=== PATIENT | female | born 1970 | race Two or more races ===

== ENCOUNTER 2019-03-26 11:36 | Emergency (ER) | payer OTHER ==
[2019-03-26] MEDS ORDERED: KETOROLAC TROMETHAMINE INJ/PF 30 MG/1 ML SDV IM ONE ×2 (12:37→15:30)
--- NOTE | 2019-03-26 12:50 | ER Document Report ---
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 She presents with MRI results as well as CT imaging from when she was denied [place] that shows arthritis and L4-5 disc herniation. Patient was sent here by Dr. Doss's office (true) for further evaluation of ?abnormal labs, swelling, and pain. I am unaware of exactly which labs were abnormal at this time. She does have an appointment with orthopedics scheduled in 1 week. Denies LOVE, fever, neck pain, URI, CP, SOB, Abd pain, dysuria, or rash. True called 1243: WBC 30k. and ?lesions on scans provided. I have treated and performed a rapid initial assessment of this patient. A comprehensive ED assessment and evaluation of the patient, analysis of test results and completion of medical decision making process will be conducted by additional ED providers. PHYSICAL EXAMINATION: GENERAL: Well-appearing, well-nourished and in no acute distress. A&Ox4. Answers questions appropriately. LUNGS: Breath sounds clear to auscultation bilaterally and equal. No wheezes rales or rhonchi. HEART: Regular rate and rhythm without murmurs, rubs, gallops. Back: FROM. No midline tenderness. SLR neg. No foot drop. She can move through ROM w/o any difficulty including the rt hip. + troch bursa tenderness. Extremities: No cyanosis, clubbing, or edema b/l. NEUROLOGICAL: Normal speech, normal gait. PSYCH: Normal mood, normal affect. - Related Data Allergies/Adverse Reactions: No Known Allergies Allergy (Unverified 03/26/19 11:41) Past Medical History Renal/ Medical History: Denies: Hx Peritoneal Dialysis Physical Exam - Vital signs Vitals: Temp Pulse Resp BP Pulse Ox 98.6 F 81 16 146/77 H 95 03/26/19 11:49 03/26/19 11:49 03/26/19 11:49 03/26/19 11:49 03/26/19 11:49 Course - Vital Signs Vital signs: Temp Pulse Resp BP Pulse Ox 98.6 F 81 16 146/77 H 95 03/26/19 11:49 03/26/19 11:49 03/26/19 11:49 03/26/19 11:49 03/26/19 11:49
[2019-03-26 13:04] LABS: HEMATOCRIT 32.3 % (36.0-47.0); HEMOGLOBIN 10.3 g/dL (12.0-15.5); MEAN CORPUSCULAR HEMOGLOBIN 29.7 pg (27.0-33.4); MEAN CORPUSCULAR HGB CONC 31.9 g/dL (32.0-36.0); MEAN CORPUSCULAR VOLUME 93 fl (80-97); RED BLOOD COUNT 3.47 10^6/uL (3.72-5.28); RED CELL DISTRIBUTION WIDTH 16.8 % (11.5-14.0); WHITE BLOOD COUNT 27.2 10^3/uL (4.0-10.5)
[2019-03-26 13:05] LABS: APPEARANCE,URINE SLIGHTLY-CLOUDY; BILIRUBIN,URINE NEGATIVE (NEGATIVE); COLOR,URINE YELLOW; GLUCOSE, URINE NEGATIVE (NEGATIVE); KETONES,URINE NEGATIVE (NEGATIVE); LEUKOCYTE ESTERASE,URINE NEGATIVE (NEGATIVE); NITRITE,URINE NEGATIVE (NEGATIVE); PROTEIN,URINE NEGATIVE (NEGATIVE); UROBILINOGEN,URINE NEGATIVE mg/dL (<2.0)
[2019-03-26 13:24] LABS: ALANINE AMINOTRANSFERASE 59 U/L (9-52); ALBUMIN 4.2 g/dL (3.5-5.0); ALKALINE PHOSPHATASE 106 U/L (38-126); ANION GAP 9 (5-19); ASPARTATE AMINO TRANSFERASE 38 U/L (14-36); BILIRUBIN,DIRECT 0.2 mg/dL (0.0-0.4); BILIRUBIN,TOTAL 0.9 mg/dL (0.2-1.3); BLOOD UREA NITROGEN 13 mg/dL (7-20); CALCIUM 8.9 mg/dL (8.4-10.2); CARBON DIOXIDE 28 mmol/L (22-30); CHLORIDE 105 mmol/L (98-107); GLUCOSE 132 mg/dL (75-110); POTASSIUM 4.1 mmol/L (3.6-5.0); SODIUM 141.7 mmol/L (137-145); TOTAL PROTEIN 7.5 g/dL (6.3-8.2)
[2019-03-26 13:27] LABS: ABSOLUTE LYMPHOCYTES# (MANUAL) 1.4 10^3/uL (0.5-4.7); ABSOLUTE NEUTROPHILS# (MANUAL) 21.2 10^3/uL (1.7-8.2); BAND NEUTROPHILS % (MANUAL) 9 % (3-5); EOSINOPHILS % (MANUAL) 0 % (0-6); LYMPHOCYTES % (MANUAL) 3 % (13-45); MONOCYTES % (MANUAL) 0 % (3-13); NUCLEATED RED BLOOD CELLS 5 /100 WBC (0); SEGMENTED NEUTROPHILS % (MAN) 60 % (42-78); TOTAL CELLS COUNTED 100
[2019-03-26 13:30] LABS: ANISOCYTOSIS 1+; PLATELET CLUMPS PRESENT; PLATELET LARGE PRESENT; POLYCHROMASIA 1+
[2019-03-26 13:41] LABS: ERYTHROCYTE SEDIMENTATION RATE 23 mm/hr (0-30)
[2019-03-26 13:51] LABS: BASOPHILS % (MANUAL) 5 % (0-2); IMMATURE MONONUCLEAR% (MANUAL) 12 % (0); METAMYELOCYTES % (MANUAL) 6 % (0); PLATELET COMMENT INCREASED; PLATELET COUNT 718 10^3/uL (150-450); PROMYELOCYTES % (MANUAL) 3 % (0)
--- NOTE | 2019-03-26 17:19 | ER Document Report ---
ED General - General Chief Complaint: Back Pain Stated Complaint: BACK AND RIGHT LEG PAIN Time Seen by Provider: 03/26/19 12:20 Primary Care Provider: SONA ADAMES MD [ACTIVE STAFF] - Follow up in 3-5 days Notes: Patient is a 49-year-old female that presents to the emergency department for chief complaint of right leg pain, weakness and back pain. Patient is visiting from [place], she had been complaining of back pain prior to leaving [place] to visit here, she had MRIs and CT of the pelvis and hips, that did demonstrate some concerning findings of possible bony lesions, she was told she had a disc issue at L4-L5 as well. She is been having this pain for a few weeks now, and is only gotten progressively worse. She will intermittently have weakness in her right leg, and she will get pain in her right hand as well and tremor in her right hand. She currently rates her pain as a 5 out of 10, describes it as a constant aching sensation in the lower back. He denies noting any fever, nausea, vomiting or abdominal pain or chest pain or shortness of breath. History provided from the patient by translation with the patient's daughter, they were offered logging assistant, but declined at this time. Past Medical History: Denies chronic medical issues Past Surgical History: Denies recent or pertinent surgical history Social History: Denies tobacco, alcohol or drug use. Family History: Reviewed and noncontributory for presenting illness Allergies: Reviewed, see documented allergy list. REVIEW OF SYSTEMS: Other than noted above, the 12 point review of systems was reviewed with the patient and were negative, all pertinent findings are included in the HPI. PHYSICAL EXAMINATION: Vital signs reviewed, nursing noted reviewed. GENERAL: Well-appearing, well-nourished and in no acute distress. HEAD: Atraumatic, normocephalic. EYES: Eyes appear normal, extraocular movements intact, sclera anicteric, co njunctiva are normal. ENT: nares patent, oropharynx clear without exudates. Moist mucous membranes. NECK: Normal range of motion, supple without lymphadenopathy LUNGS: Breath sounds clear to auscultation bilaterally and equal. No wheezes rales or rhonchi. HEART: Regular rate and rhythm without murmurs ABDOMEN: Soft, nontender, normoactive bowel sounds. No rebound, guarding, or rigidity. No masses appreciated. Back: There is no focal midline or paraspinal tenderness to the lumbar thoracic spinal exam. EXTREMITIES: Nontender, good range of motion, no pitting or edema. NEUROLOGICAL: Patient's patellar and Achilles tendon reflexes are +2/4 bilaterally, she did have some weakness in the right lower extremity compared to the left, with +4/5 strength compared to +5/5 strength. The patient's upper extremity exam was completely unremarkable, with excellent strength distally, sensation was intact bilaterally and equal. [place] yes just to the rectal no focal neurological deficits. Moves all extremities spontaneously. PSYCH: Normal mood, normal affect. SKIN: Warm, Dry, normal turgor, no rashes or lesions noted on exposed skin - Related Data Allergies/Adverse Reactions: No Known Allergies Allergy (Unverified 03/26/19 11:41) Past Medical History - Social History Smoking Status: Never Smoker Family History: Reviewed & Not Pertinent Patient has suicidal ideation: No Patient has homicidal ideation: No Renal/ Medical History: Denies: Hx Peritoneal Dialysis Physical Exam - Vital signs Vitals: Temp Pulse Resp BP Pulse Ox 98.6 F 81 16 146/77 H 95 03/26/19 11:49 03/26/19 11:49 03/26/19 11:49 03/26/19 11:49 03/26/19 11:49 Course - Re-evaluation Re-evalutation: Patient seen and examined vital signs reviewed. Laboratory data and/or imaging were ordered as appropriate for the patient's presenting symptoms and complaint, with consideration of any critical or life threatening conditions that may be associated with their obtained history and exam as noted above. Patient was treated with Tylenol, Toradol was ordered in triage Results were reviewed when available and demonstrated significant leukocytosis, with abnormal differential, concerning for blood dyscrasia, specifically CML, renal function was normal, no protein in the urine, which does make multiple myeloma less likely, I am concerned this patient may have spinal cord compression however, patient did have abnormal MRI and CT imaging performed [place], will order MRI of the brain, cervical spine, thoracic spine and lumbar spine, to evaluate for possible spinal cord compression at any level, or any brain lesions. As the patient has had both upper and lower extremity symptoms recently. Imaging demonstrated diffuse low fatty attenuation of the bone marrow concerning for possible bone marrow infiltrative process, which is consistent with the patient's blood work, no evidence of spinal cord compression however. The patient was re-evaluated and was stable, pain was controlled Evaluation was most consistent with leukocytosis, back pain, concern for bone marrow dyscrasia, discussed with oncology, they will follow-up with the patient on Friday in the office, this was discussed with the patient's daughter and she is agreeable, other information with permission was given to Dr. Adames, to help facilitate follow-up. Results were discussed with the patient at this point, after careful consideration I feel that that patient can be discharged from the emergency department, the patient was educated treatments and reasons to return to the emergency department based on their presumed diagnosis as noted above, they were advised to followup with a primary care physician in 2-3 days. Patient was agreeable to plan of care. *Note is created using voice recognition software and may contain spelling, syntax or grammatical errors. Laboratory 03/26/19 03/26/19 03/26/19 12:40 12:40 12:40 WBC 27.2 H RBC 3.47 L Hgb 10.3 L Hct 32.3 L MCV 93 MCH 29.7 MCHC 31.9 L RDW 16.8 H Plt Count 718 H Total Counted 100 Seg Neutrophils % Not Reportable Seg Neuts % (Manual) 60 Band Neutrophils % 9 H Lymphocytes % Not Reportable Lymphocytes % (Manual) 3 L Atypical Lymphs % 2 Monocytes % Not Reportable Monocytes % (Manual) 0 L Eosinophils % Not Reportable Eosinophils % (Manual) 0 Basophils % Not Reportable Basophils % (Manual) 5 H Metamyelocytes % 6 H Promyelocytes % 3 H Immature Leukocytes % 12 H Absolute Neutrophils Not Reportable Abs Neuts (Manual) 21.2 H Absolute Lymphocytes Not Reportable Abs Lymphs (Manual) 1.4 Absolute Monocytes Not Reportable Abs Monocytes (Manual) 0.0 L Absolute Eosinophils Not Reportable Absolute Eos (Manual) 0.0 Absolute Basophils Not Reportable Abs Basophils (Manual) 1.4 H Nucleated RBCs 5 Clumped Platelets PRESENT Large Platelets PRESENT Platelet Comment INCREASED Polychromasia 1+ Basophilic Stippling PRESENT Anisocytosis 1+ ESR 23 Sodium 141.7 Potassium 4.1 Chloride 105 Carbon Dioxide 28 Anion Gap 9 BUN 13 Creatinine 0.67 Est GFR ( Amer) > 60 Est GFR (Non-Af Amer) > 60 Glucose 132 H Calcium 8.9 Total Bilirubin 0.9 Direct Bilirubin 0.2 Neonat Total Bilirubin Not Reportable Neonat Direct Bilirubin Not Reportable Neonat Indirect Bili Not Reportable AST 38 H ALT 59 H Alkaline Phosphatase 106 C-React Prot High Sens > 15.0000 H Total Protein 7.5 Albumin 4.2 Urine Color Urine Appearance Urine pH Ur Specific [place] Urine Protein Urine Glucose (UA) Urine Ketones Urine Blood Urine Nitrite Urine Bilirubin Urine Urobilinogen Ur Leukocyte Esterase Urine WBC (Auto) Urine RBC (Auto) Squamous Epi Cells Auto Urine Mucus (Auto) Urine Ascorbic Acid 03/26/19 12:46 WBC RBC Hgb Hct MCV MCH MCHC RDW Plt Count Total Counted Seg Neutrophils % Seg Neuts % (Manual) Band Neutrophils % Lymphocytes % Lymphocytes % (Manual) Atypical Lymphs % Monocytes % Monocytes % (Manual) Eosinophils % Eosinophils % (Manual) Basophils % Basophils % (Manual) Metamyelocytes % Promyelocytes % Immature Leukocytes % Absolute Neutrophils Abs Neuts (Manual) Absolute Lymphocytes Abs Lymphs (Manual) Absolute Monocytes Abs Monocytes (Manual) Absolute Eosinophils Absolute Eos (Manual) Absolute Basophils Abs Basophils (Manual) Nucleated RBCs Clumped Platelets Large Platelets Platelet Comment Polychromasia Basophilic Stippling Anisocytosis ESR Sodium Potassium Chloride Carbon Dioxide Anion Gap BUN Creatinine Est GFR ( Amer) Est GFR (Non-Af Amer) Glucose Calcium Total Bilirubin Direct Bilirubin Neonat Total Bilirubin Neonat Direct Bilirubin Neonat Indirect Bili AST ALT Alkaline Phosphatase C-React Prot High Sens Total Protein Albumin Urine Color YELLOW Urine Appearance SLIGHTLY-CLOUDY Urine pH 5.0 Ur Specific [place] 1.010 Urine Protein NEGATIVE Urine Glucose (UA) NEGATIVE Urine Ketones NEGATIVE Urine Blood NEGATIVE Urine Nitrite NEGATIVE Urine Bilirubin NEGATIVE Urine Urobilinogen NEGATIVE Ur Leukocyte Esterase NEGATIVE Urine WBC (Auto) 0 Urine RBC (Auto) 0 Squamous Epi Cells Auto 3 Urine Mucus (Auto) RARE Urine Ascorbic Acid NEGATIVE Cervical Spine MRI 03/26/19 17:20 IMPRESSION: 1. No focal bone lesions. 2. Marrow signal is diffusely less fatty than expected, suggesting bone marrow recruitment due to anemia or a diffuse infiltrating marrow disorder. 3. Mild degenerative changes. No significant central or foraminal stenosis. Head MRI 03/26/19 17:21 IMPRESSION: 1. Normal noncontrast MRI of the brain. 2. Bone marrow signal is less fatty than typically expected, suggesting diffuse marrow recruitment due to anemia, or an infiltrative marrow disorder. 3. No focal calvarial lesions. Thoracic Spine MRI 03/26/19 17:21 IMPRESSION: 1. Lesion in the medial head of the left 4th rib, suspicious for neoplasm. This could be multiple myeloma. 2. No thoracic spine lesions. 3. Normal thoracic cord. No cord compression. - Vital Signs Vital signs: Temp Pulse Resp BP Pulse Ox 99.0 F 80 16 117/61 93 03/26/19 18:49 03/26/19 18:49 03/26/19 18:49 03/26/19 18:49 03/26/19 18:49 - Laboratory Result Diagrams: 03/26/19 12:40 03/26/19 12:40 Laboratory results interpreted by me: 03/26/19 03/26/19 03/26/19 12:40 12:40 12:40 WBC 27.2 H RBC 3.47 L Hgb 10.3 L Hct 32.3 L MCHC 31.9 L RDW 16.8 H Plt Count 718 H Band Neutrophils % 9 H Lymphocytes % (Manual) 3 L Monocytes % (Manual) 0 L Basophils % (Manual) 5 H Metamyelocytes % 6 H Promyelocytes % 3 H Immature Leukocytes % 12 H Abs Neuts (Manual) 21.2 H Abs Monocytes (Manual) 0.0 L Abs Basophils (Manual) 1.4 H Glucose 132 H AST 38 H ALT 59 H C-React Prot High Sens > 15.0000 H Discharge - Discharge Clinical Impression: Thrombocytosis, Tremor Leukocytosis Qualifiers: Leukocytosis type: unspecified Qualified Code(s): D72.829 - Elevated white blo od cell count, unspecified Back pain Qualifiers: Back pain location: low back pain Chronicity: unspecified Back pain laterality: right Sciatica presence: with sciatica Sciatica laterality: sciatica of right side Qualified Code(s): M54.41 - Lumbago with sciatica, right side Anemia Qualifiers: Anemia type: unspecified type Qualified Code(s): D64.9 - Anemia, unspecified Condition: Stable Disposition: HOME, SELF-CARE Instructions: Sciatica (OM) Additional Instructions: Please follow-up with oncology, call for an appointment on Friday, they should be expecting your call. In the meantime if you have any worsening symptoms, please do not hesitate to return to the emergency department sooner. Referrals: SONA ADAMES MD [ACTIVE STAFF] - Follow up in 3-5 days
[2019-03-26] MEDS ORDERED: ACETAMINOPHEN 325 MG TABLET PO ONE (19:23)
--- NOTE | 2019-03-26 21:49 | RADIOLOGY REPORT (SQ) ---
EXAM DESCRIPTION: [facility]: MR THORACIC SPINE WITHOUT IV CONTRAST CLINICAL HISTORY: 49 years Female; back pain, LLE paresthesia, concern for MM TECHNIQUE: Noncontrast MRI thoracic spine. COMPARISON: None. FINDINGS: No thoracic cord edema or cord compression. No epidural fluid collections. Alignment is anatomic. No central or foraminal stenosis. No focal disc herniation. Thoracic vertebral marrow signal is normal. In the medial head of the left 4th rib there is a lesion with T2 hyperintensity and T1 hypointensity, 1.9 x 0.9 x 1.2 cm. No other lesions in the visualized portions of the ribs. IMPRESSION: 1. Lesion in the medial head of the left 4th rib, suspicious for neoplasm. This could be multiple myeloma. 2. No thoracic spine lesions. 3. Normal thoracic cord. No cord compression.
--- NOTE | 2019-03-26 21:59 | RADIOLOGY REPORT (SQ) ---
EXAM DESCRIPTION: [facility]: MR BRAIN WITHOUT IV CONTRAST CLINICAL HISTORY: 49 years Female; right ue tremor TECHNIQUE: Routine noncontrast MRI brain protocol COMPARISON: None. FINDINGS: No diffusion restriction. Batres matter, white matter, ventricles, and cisterns are normal. No midline shift or mass-effect. No hemosiderin deposition. There are no focal calvarial lesions. Bone marrow signal is less fatty than typically expected, suggesting diffuse marrow recruitment or an infiltrative marrow disorder. Paranasal sinuses are clear. Normal flow-voids are seen in the major intracranial arteries. IMPRESSION: 1. Normal noncontrast MRI of the brain. 2. Bone marrow signal is less fatty than typically expected, suggesting diffuse marrow recruitment due to anemia, or an infiltrative marrow disorder. 3. No focal calvarial lesions.
--- NOTE | 2019-03-26 22:01 | RADIOLOGY REPORT (SQ) ---
EXAM DESCRIPTION: [facility]: MR CERVICAL SPINE WITHOUT IV CONTRAST CLINICAL HISTORY: 49 years Female; right UE tremor TECHNIQUE: Noncontrast MRI cervical spine. COMPARISON: None. FINDINGS: Alignment is anatomic. Marrow signal is diffusely less T1 hyperintense than typically expected. However, there are no focal bone lesions. C4-C5: Minimal left uncovertebral osteophyte. No stenosis. Aggressive C5-C6: Small midline disc protrusion central canal is 8 mm. No foraminal stenosis. Minimal facet arthropathy. No acute cortical edema. No syrinx. No epidural fluid collections. IMPRESSION: 1. No focal bone lesions. 2. Marrow signal is diffusely less fatty than expected, suggesting bone marrow recruitment due to anemia or a diffuse infiltrating marrow disorder. 3. Mild degenerative changes. No significant central or foraminal stenosis.
[2019-03-26 23:13] VITALS: BP 114/60
== END 2019-03-26 23:30 | disposition home or self-care (01) ==
LOC: EDBD 11:36 → ER 11:36
DX: D47.3 Essential (hemorrhagic) thrombocythemia (principal); R25.1 Tremor, unspecified; D72.829 Elevated white blood cell count, unspecified; M54.41 Lumbago with sciatica, right side; D64.9 Anemia, unspecified; M79.604 Pain in right leg; R53.1 Weakness; M54.9 Dorsalgia, unspecified
CPT/HCPCS: 99284; 96372; 36415; 87040; 85025; 85652; 80053; 81001; 86141; 70551; 72141; 72146; J1885

== ENCOUNTER 2020-07-31 17:04 | Outpatient (CLI) | payer BC, OTHER ==
[2020-07-31 18:01] LABS: HEMATOCRIT 20.7 % (36.0-47.0); MEAN CORPUSCULAR HGB CONC 34.8 g/dL (32.0-36.0); MEAN CORPUSCULAR VOLUME 101 fl (80-97); RED BLOOD COUNT 2.06 10^6/uL (3.72-5.28); RED CELL DISTRIBUTION WIDTH 17.7 % (11.5-14.0)
[2020-07-31 18:11] LABS: PLATELET COUNT 60 10^3/uL (150-450)
[2020-07-31 18:17] LABS: HEMOGLOBIN 7.2 g/dL (12.0-15.5)
[2020-07-31 18:39] LABS: WHITE BLOOD COUNT 0.7 10^3/uL (4.0-10.5)
[2020-08-01] MEDS ORDERED: ACETAMINOPHEN 325 MG TABLET ONE (13:37)
[2020-08-01] MEDS ORDERED: DIPHENHYDRAMINE HCL 25 MG CAPSULE ONE (13:37)
[2020-08-01] MEDS ORDERED: FUROSEMIDE INJ/PF 20 MG/2 ML SDV ONE (13:37)
[2020-08-01 14:17] LABS: PATH REVIEW PATHOLOGIST REVIEWED
[2020-08-01 21:12] VITALS: BP 114/58
== END 2020-08-01 21:15 | disposition home or self-care (01) ==
LOC: OD 17:04 → 3W 08-01 12:41 → II 08-01 21:15
PROVIDERS: ATTEND Internal Medicine
DX: D64.9 Anemia, unspecified (principal)
CPT/HCPCS: 86900; 86901; 36415; 36430; 86850; 86920; P9016; J1940; 96374